=== PATIENT | female | born 1985 | race Caucasian/White ===

== ENCOUNTER 2017-07-10 13:58 | Emergency (ER) | payer MEDICAID ==
[~2017-07-10] VITALS: Ht 175.3 cm; Wt 53.0 kg
[~2017-07-10 13:58] MED LIST: FERR27TA PO; PREN1TAB49 PO
[2017-07-10 14:05] VITALS: Ht 175.3 cm; Wt 53.0 kg
[2017-07-10] MEDS ORDERED: FAMO-96 PO (15:31)
[2017-07-10] MEDS ORDERED: ACET500C5 PO (15:31)
--- NOTE | 2017-07-10 15:34 | ERD ---
ER Documentation Chief Complaint Date/Time DATE: 07/10/17 TIME: 15:32 Chief Complaint LIMB NUMBNESS WITH SWALLOWING PROBLEM WHILE DRIVING 1 HR AGO HPI This 31-year-old female presents with sensation of phlegm in her throat with sudden onset today. She has some mild epigastric pain as well. Patient denies any choking or shortness of breath. She was able to tolerate liquids without problems afterwards. She denies fevers, chest pain, vomiting, patient admits to being under stress. She has an additional complaint of right ear possible foreign body after she was missing the cotton from the end of a Q-tip. She went to her primary doctor who told her she has a normal exam and she requests evaluation for this as well. ROS All systems reviewed and are negative except as per history of present illness. Medications Home Meds Active Scripts Famotidine* (Pepcid*) 20 Mg Tablet, 20 MG PO BID for 14 Days, #30 TAB Prov:BRENT LY MD 07/10/17 Acetaminophen* (Tylophen*) 500 Mg Capsule, 1 CAP PO Q6H Y for PAIN AND OR ELEVATED TEMP, #15 CAP Prov:BRENT LY MD 07/10/17 Reported Medications Ferrous Sulfate (Iron) 1 Tab Tablet, 1 TAB PO 04/14/12 Ferrous Sulfate (Iron) 1 Tab Tablet, 1 TAB PO 04/14/12 Vits W-Ca,Fe,Fa(<1MG) () 1 Tab Tablet, 1 TAB PO 04/14/12 Allergies Allergies: Coded Allergies: No Known Allergies (Verified Allergy, 04/14/12) Physical Exam Vitals Vital Signs Date Time Temp Pulse Resp B/P Pulse Ox O2 Delivery O2 Flow Rate FiO2 07/10/17 14:05 99.1 69 17 133/78 97 Physical Exam Const: [] Head: Atraumatic Eyes: Normal Conjunctiva ENT: Normal External Ears, Nose and Mouth.TMs normal. Oropharynx normal. Neck: Full range of motion..~ No meningismus. Resp: Clear to auscultation bilaterally Cardio: Regular rate and rhythm, no murmurs Abd: Soft, non tender, non distended. Normal bowel sounds Skin: No petechiae or rashes Back: No midline or flank tenderness Ext: No cyanosis, or edema Neur: Awake and alert Psych: Normal Mood and Affect Procedures/MDM This well-appearing patient presents with sensation of a globus sensation with a normal exam. She has a normal ear exam despite history of possible foreign body. Patient has symptoms of possible epigastric pain associated with her globus and will treated with Pepcid and patient is advised to follow-up with primary doctor return to the ER for new or worsening symptoms Tylenol further observation at home. She may have anxiety related symptoms as well. There is no evidence of obstruction, signs or symptoms to suggest respiratory distress, acute abdomen, acute coronary syndrome, PE. She will be treated with Departure Diagnosis: Primary Impression: GERD (gastroesophageal reflux disease) Esophagitis presence: esophagitis presence not specified Qualified Code: K21.9 - Gastroesophageal reflux disease, esophagitis presence not specified Additional Impression: Swallowing disorder Condition: Stable Patient Instructions: What Is Acid Reflux?, Symptoms With Uncertain Cause Additional Instructions: Examines normal hoy. Cheque otro vez con colin doctor primario en el proximo de guzman or regresa para mas o nueva simptomas. BRENT LY MD Jul 10, 2017 15:34
== END 2017-07-10 16:35 | disposition home or self-care (01) ==
LOC: FTE 13:58
DX: K21.9 Gastro-esophageal reflux disease without esophagitis (principal); R13.10 Dysphagia, unspecified
CPT/HCPCS: 99283